=== PATIENT | male | born 1960 | race Caucasian/White ===

== ENCOUNTER 2020-08-20 18:13 | Emergency (ER) | payer OTHER, SELFPAY ==
[2020-08-20 18:15] VITALS: BP 165/71; PULSE 50; RESP 24; TEMP 37.2; O2SAT 98
--- NOTE | 2020-08-20 18:30 | ED.GENADULT ---
HPI - General Adult General Chief complaint: Shortness of Breath/Dyspnea Stated complaint: tightness in chest/arm numbness Time Seen by Provider: 08/20/20 18:30 Source: patient and RN notes reviewed Mode of arrival: ambulatory Limitations: no limitations History of Present Illness HPI narrative: 59-year-old male presents with complaints of weakness, cough, swelling to lower extremities, shortness of breath, and intermittent mid-chest tightness, dizziness, for the past 27 hours. Routine inhalers without relief. Increasing shortness of breath and mid-chest tightness throughout the night and today. Exacerbating factors is cigarette smoke. No family history of sudden . Denies diaphoresis. Denies fever or chills. Denies nausea, vomiting, diarrhea, or abdominal pain. Denies long car rides, hisorty of DVT, or PE. The patient reports he have not been diagnosed with COVID-19. The patient reports he is not waiting for the results of a COVID-19 lab test. The patient reports he do not have fever, chills, or fatigue. The patient reports he do not have a worsening cough. Denies chest pain. The patient reports he do not have any rhinorrhea, congestion, sore throat, loss of taste, and diarrhea. Tolerating po intake well. Denies concerns for COVID-19 or exposures been home with limited outdoor exposure except for essential household needs and return home. At this time, patient is not suspected of having COVID-19. Some parts of this dictation were generated by voice recognition software and may contain typographical and/or grammatical inaccuracies. Related Data Home Medications Medication Instructions Recorded Confirmed albuterol sulfate [ProAir 1 inh INHALATION Q6H PRN 08/20/20 08/20/20 RespiClick] carvedilol 3.125 mg PO BID 08/20/20 08/20/20 citalopram 20 mg PO DAILY 08/20/20 08/20/20 lisinopril 40 mg PO DAILY 08/20/20 08/20/20 meloxicam 15 mg PO DAILY 08/20/20 08/20/20 omeprazole 40 mg PO DAILY 08/20/20 08/20/20 rosuvastatin 10 mg PO DAILY 08/20/20 08/20/20 Allergies Allergy/AdvReac Type Severity Reaction Status Date / Time codeine AdvReac Nausea and Verified 08/20/20 18:41 Vomiting Review of Systems Review of Systems: Narrative: CONSTITUTIONAL: Denies fever, chills, sweats. EYES: Denies visual changes, redness, discharge. ENT: Denies rhinorrhea, congestion, sore throat, otalgia. CARDIOVASCULAR: Complains of intermittent mid-chest tightness, BLE. Denies palpitations, diaphoresis. RESPIRATORY: Denies dyspnea, wheezing. Complains of cough. GASTROINTESTINAL: Denies abdominal pain, nausea, vomiting, diarrhea. GENITOURINARY: Denies dysuria, hematuria, abnormal discharge. SKIN: Denies rash or itching. MUSCULOSKELETAL: Denies acute back pain or myalgia. NEUROLOGIC: Denies numbness or focal weakness. PSYCHIATRIC: Denies anxiety or depression. Complains of dizziness, weakness. All systems reviewed & are unremarkable except as noted in HPI and below PMFSH Past Medical History Medical History (Updated 08/26/20 @ 20:25 by FIDELINA Rodriguez) Alcohol abuse quite 30 years ago COPD (chronic obstructive pulmonary disease) Hand injury History of gastroesophageal reflux (GERD) Hypercholesteremia Hypertension Swelling of lower leg Tobacco abuse Tremor due to disorder of central nervous system Surgical History Surgical History (Updated 08/20/20 @ 19:46 by FIDELINA Rodriguez) History of hand surgery Family History Family History (Updated 08/20/20 @ 19:46 by FIDELINA Rodriguez) Unknown No problems noted. Social History Social History (Updated 08/20/20 @ 20:00 by FIDELINA Rodriguez) Smoking packs per day: 0.25 Smoking cigarettes per day: 5.0 Years smoked: 30 Smoking pack-years: 7.50 Smoking status: Current every day smoker Tobacco type: cigarettes Second hand tobacco smoke exposure: Yes Alcohol intake: former Substance use: never Living arrangements: alone
--- NOTE | 2020-08-20 19:51 | ECG_ITS ---
Measurements Intervals [place] Rate: 72 P: 56 NC: 149 QRS: 0 QRSD: 113 T: 76 QT: 395 QTc: 435 Interpretive Statements SINUS RHYTHM VENTRICULAR BIGEMINY INTRAVENTRICULAR CONDUCTION DELAY ABNORMAL ECG Electronically Signed On 08-21-2020 7:52:07 CDT by Noe Salomon D.O.
== END 2020-08-20 18:40 | disposition short-term general hospital (02) ==
LOC: EXPBETH 18:20
PROVIDERS: Emergency Provider Nurse Practitioner Family; PCP Internal Medicine
DX: R00.1 Bradycardia, unspecified (principal); R06.02 Shortness of breath; F17.210 Nicotine dependence, cigarettes, uncomplicated; J44.9 Chronic obstructive pulmonary disease, unspecified; K21.9 Gastro-esophageal reflux disease without esophagitis; E78.00 Pure hypercholesterolemia, unspecified; I10 Essential (primary) hypertension
CPT/HCPCS: 93005; 99215; G0463